=== PATIENT | female | born 2000 | race Caucasian/White ===

== ENCOUNTER 2022-06-18 10:48 | Emergency (ER) | payer BC ==
[2022-06-18 12:59] LABS: BLOOD UREA NITROGEN,BUN 10 mg/dL (7.0-18.0); CARBON DIOXIDE,CO2 24.5 mmol/L (21.0-32.0); CHLORIDE,CL 107 mmol/L (98-107); GLUCOSE RANDOM 91 mg/dL (74-106); POTASSIUM,K 3.7 mmol/L (3.5-5.1); SODIUM,NA 140 mmol/L (136-145)
[2022-06-18 13:03] LABS: ESTIMATED GFR 125 mL/min (>60)
== END 2022-06-18 13:51 | disposition home or self-care (01) ==
LOC: MW.ED 10:48
DX: O20.0 Threatened abortion (principal); O23.41 Unspecified infection of urinary tract in pregnancy, first trimester; N39.0 Urinary tract infection, site not specified; Z88.1 Allergy status to other antibiotic agents; Z3A.01 Less than 8 weeks gestation of pregnancy
CPT/HCPCS: 36415; 76817; 76817-26; 80053; 81001; 84702; 85025; 86900; 86901; 87086; 99284

== ENCOUNTER 2022-12-15 17:35 | Emergency (ER) | payer OTHER, BC ==
[2022-12-15] MEDS ORDERED: Ketorolac 30 MG/ML SDV IM ONE (19:17)
[2022-12-15] MEDS ORDERED: Cyclobenzaprine 10 MG Tab PO ONE (19:17)
== END 2022-12-15 20:14 | disposition home or self-care (01) ==
LOC: MW.ED 17:35
DX: S39.012A Strain of muscle, fascia and tendon of lower back, initial encounter (principal); Z88.1 Allergy status to other antibiotic agents; V49.9XXA Car occupant (driver) (passenger) injured in unspecified traffic accident, initial encounter; Y92.410 Unspecified street and highway as the place of occurrence of the external cause
CPT/HCPCS: 81025; 96372; 99284; A9270; J1885; 99283

== ENCOUNTER 2023-06-16 17:48 | Emergency (ER) | payer BC | END 2023-06-16 19:56 | disposition home or self-care (01) | LOC: MW.ED 17:48 | DX: O99.891 Other specified diseases and conditions complicating pregnancy (principal); R10.30 Lower abdominal pain, unspecified; O99.512 Diseases of the respiratory system complicating pregnancy, second trimester; J45.909 Unspecified asthma, uncomplicated; Z3A.15 15 weeks gestation of pregnancy; Z79.51 Long term (current) use of inhaled steroids; Z88.1 Allergy status to other antibiotic agents | CPT/HCPCS: 76805; 76805-26; 99282; 99284 ==

== ENCOUNTER 2023-11-12 22:49 | Emergency (ER) | payer BC, OTHER | END 2023-11-12 23:47 | disposition home or self-care (01) | LOC: MW.ED 22:49 | DX: O99.893 Other specified diseases and conditions complicating puerperium (principal); R21 Rash and other nonspecific skin eruption; Z75.8 Other problems related to medical facilities and other health care; J45.909 Unspecified asthma, uncomplicated; Z3A.37 37 weeks gestation of pregnancy | CPT/HCPCS: 99282 ==

== ENCOUNTER 2023-11-24 17:00 | Inpatient (IN) | payer BC ==
[2023-11-24] MEDS ORDERED: Sodium Chloride 0.9% 20 ML SDV IV PRN (17:08)
[2023-11-24] MEDS ORDERED: Tranexamic Acid IN NACL,ISO-OS 1,000 MG in Premix Bag 1 BAG IV PRN (17:08)
[2023-11-24] MEDS ORDERED: Lidocaine 1% 50 ML MDV INJECT PRN (17:08)
[2023-11-24] MEDS ORDERED: Carboprost Tromethamine 250 MCG/1 mL Vial IM PRN (17:08)
[2023-11-24] MEDS ORDERED: Water For Irrigation,Sterile 1,000 ML Container IRR PRN (17:08)
[2023-11-24] MEDS ORDERED: Terbutaline 1 MG/ML SDV SUBCUT PRN (17:08)
[2023-11-24] MEDS ORDERED: Misoprostol 200 MCG Tab PO PRN (17:08)
[2023-11-24] MEDS ORDERED: Sodium Chloride 0.9% 2.5 ML Syringe FLUSH PRN (17:08)
[2023-11-24] MEDS ORDERED: Sodium Chloride 0.9% 10 ML Syringe FLUSH PRN (17:08)
[2023-11-24] MEDS ORDERED: Oxytocin/0.9 % Sodium Chloride 30 UNIT/500 ML BAG IV SCH (17:15)
[2023-11-24 17:37] LABS: HEMATOCRIT 34.7 % (37.0-47.0); HEMOGLOBIN 11.9 g/dL (12.0-16.0); MEAN CORPUSCULAR HEMOGLOBIN 30.4 pg (28.0-32.0); MEAN CORPUSCULAR HGB CONC 34.3 g/dL (32.0-36.0); MEAN CORPUSCULAR VOLUME 88.7 fL (83.0-99.0); MEAN PLATELET VOLUME 10.1 fL (9.4-12.3); PLATELET COUNT,PLT 207 K/uL (150-400); RED BLOOD CELL COUNT 3.91 M/uL (4.10-5.30); WHITE BLOOD CELL COUNT,WBC 9.77 K/uL (3.9-11.3)
[2023-11-24] MEDS: Lactated Ringers 1,000 ML IV SCH (17:40)
[2023-11-24] MEDS: Misoprostol 25 MCG (1/4 of 100 MCG) Tab VAG PRN (18:14)
[2023-11-24] MEDS: Butorphanol 2 MG/ML SDV IVPUSH PRN (23:39)
[2023-11-24] MEDS: Ondansetron 4 MG/2 ML SDV IVPUSH PRN (23:50)
[2023-11-25] MEDS: Misoprostol 25 MCG (1/4 of 100 MCG) Tab VAG PRN (04:09)
[2023-11-25] MEDS: Calcium Carbonate 500 MG Tab.Chew PO PRN (09:12)
[2023-11-25] MEDS: Ropivacaine HCl/PF 400 MG in Premix Bag 1 BAG EPIDUR SCH (10:46)
[2023-11-25] MEDS ORDERED: Naloxone 0.4 MG/ML SDV IVPUSH PRN (10:55)
[2023-11-25] MEDS ORDERED: Albuterol 0.083% 2.5 MG/3 ML Neb Soln NEB PRN (10:55)
[2023-11-25] MEDS ORDERED: HYDROmorphone 1 MG/ML Syringe IVPUSH PRN (10:55)
[2023-11-25] MEDS ORDERED: Phenylephrine HCl In 0.9% NaCl 1 MG/10 ML Syringe IVPUSH PRN (10:55)
[2023-11-25] MEDS ORDERED: ePHEDrine 50 MG/ML SDV IVPUSH PRN (10:55)
[2023-11-25] MEDS ORDERED: droPERidol 5 MG/2 ML SDV IVPUSH PRN (10:55)
[2023-11-25] MEDS ORDERED: fentaNYL 50 MCG/ML SDV IVPUSH PRN (10:55)
[2023-11-25] MEDS ORDERED: ePHEDrine 50 MG/ML SDV IM PRN (10:55)
[2023-11-25] MEDS ORDERED: Morphine 2 MG/ML SYRINGE IVPUSH PRN (10:55)
[2023-11-25] MEDS ORDERED: Metoclopramide 10 MG/2 ML SDV IVPUSH PRN (10:55)
[2023-11-25] MEDS ORDERED: Ondansetron 4 MG/2 ML SDV IVPUSH PRN (10:55)
[2023-11-25] MEDS ORDERED: dexmedeTOMIDine HCl 200 MCG/2 ML SDV EPIDUR SCH (11:00)
[2023-11-25] MEDS: Phenylephrine HCl In 0.9% NaCl 1 MG/10 ML Syringe IVPUSH PRN (11:35)
[2023-11-25] MEDS: Oxytocin/0.9 % Sodium Chloride 30 UNIT/500 ML BAG IV SCH (11:45)
[2023-11-25] MEDS: Methylergonovine 0.2 MG/1 ML Amp IM PRN (16:44)
[2023-11-25] MEDS ORDERED: Lanolin 100% Cream 7 GM Tube TOP PRN (18:18)
[2023-11-25] MEDS ORDERED: oxyCODONE 5 MG Tab PO PRN (18:18)
[2023-11-25] MEDS: Ropivacaine HCl/PF 200 ML ONE (18:21)
[2023-11-25] MEDS: Bupivacaine 0.5% 10 ML SDV INJECT ONE (18:21)
[2023-11-25] MEDS: Phenylephrine HCl In 0.9% NaCl 1 MG/10 ML Syringe ONE (18:21)
[2023-11-25] MEDS: Bupivacaine 0.5% 10 ML SDV ONE (18:21)
[2023-11-25] MEDS: Ibuprofen 800 MG Tab PO PRN (22:07)
[2023-11-26] MEDS: Benzocaine/Menthol 20%-0.5% Spray 78 GM Cannister TOP PRN (00:52)
[2023-11-26] MEDS: Witch Hazel Medicated Pads 40/Jar TOP PRN (00:52)
[2023-11-26] MEDS: Acetaminophen 500 MG Tab PO PRN (05:22)
[2023-11-26 05:48] LABS: HEMATOCRIT 32.3 % (37.0-47.0); HEMOGLOBIN 10.6 g/dL (12.0-16.0)
[2023-11-26] MEDS: Docusate Sodium 100 MG Cap PO PRN (08:49)
== END 2023-11-26 20:00 | disposition home or self-care (01) | DRG 560 ==
LOC: MW.OB 17:00 → OBSVTOIN 11-25 16:38 → MW.OB 11-26 00:18
PROVIDERS: ADMIT Obstetrics & Gynecology; ATTEND Obstetrics & Gynecology
PROC: 10E0XZZ Delivery of Products of Conception, External Approach (ICD-10-PCS; principal; 2023-11-25)
PROC: 3E0P7VZ Introduction of Hormone into Female Reproductive, Via Natural or Artificial Opening (ICD-10-PCS; 2023-11-25)
PROC: 3E033VJ Introduction of Other Hormone into Peripheral Vein, Percutaneous Approach (ICD-10-PCS; 2023-11-25)
PROC: 3E0DXGC Introduction of Other Therapeutic Substance into Mouth and Pharynx, External Approach (ICD-10-PCS; 2023-11-25)
PROC: 0HQ9XZZ Repair Perineum Skin, External Approach (ICD-10-PCS; 2023-11-25)
PROC: 3E0R3BZ Introduction of Anesthetic Agent into Spinal Canal, Percutaneous Approach (ICD-10-PCS; 2023-11-25)
PROC: 00HU33Z Insertion of Infusion Device into Spinal Canal, Percutaneous Approach (ICD-10-PCS; 2023-11-25)
DX: O26.86 Pruritic urticarial papules and plaques of pregnancy (PUPPP) (principal); Z37.0 Single live birth; O70.0 First degree perineal laceration during delivery; O77.0 Labor and delivery complicated by meconium in amniotic fluid; O90.81 Anemia of the puerperium; Z88.8 Allergy status to other drugs, medicaments and biological substances; Z86.16 Personal history of COVID-19; Z90.89 Acquired absence of other organs
CPT/HCPCS: 01967; 36415; 51702; 59025; 59409; 85014; 85018; 85027; 86592; 86850; 86900; 86901; A9270-GY; J0595; J0665; J2210; J2371; J2405; J2590; J2795; J7120